=== PATIENT | female | born 1970 | race American Indian/Alaskan Native ===

== ENCOUNTER 2019-01-12 16:50 | Emergency (ER) | payer SELFPAY ==
--- NOTE | 2019-01-12 16:55 | Event Note ---
ED Screening Note ED Screening Note: to er with sob and swelling concerned she is in chf she has been out of her lasix ef .40 in 2013 This initial assessment/diagnostic orders/clinical plan/treatment(s) is/are subject to change based on patients health status, clinical progression and re- assessment by fellow clinical providers in the ED. Further treatment and workup at subsequent clinical providers discretion. Patient/guardian urged not to elope from the ED as their condition may be serious if not clinically assessed and managed. Initial orders include: chf eval
[2019-01-12 16:56] VITALS: BP 142/90
[2019-01-12 17:30] LABS: Basophils # (Auto) 0.1 K/mm3 (0.0-0.1); Basophils % (Auto) 1.1 % (0.0-1.8); Eosinophils # (Auto) 0.2 K/mm3 (0.0-0.4); Eosinophils % (Auto) 3.3 % (0.0-4.3); Hematocrit 43.4 % (30.3-42.9); Hemoglobin 14.5 gm/dl (10.1-14.3); Lymphocytes # (Auto) 2.5 K/mm3 (1.2-5.4); Lymphocytes % (Auto) 37.1 % (13.4-35.0); Mean Corpuscular HGB Conc 33 % (30-34); Mean Corpuscular Volume 94 fl (79-97); Monocytes # (Auto) 0.9 K/mm3 (0.0-0.8); Monocytes % (Auto) 13.8 % (0.0-7.3); Platelet Count 260 K/mm3 (140-440); Red Cell Distribution Width 15.1 % (13.2-15.2)
[2019-01-12 17:50] LABS: Alanine Aminotransferase 15 units/L (7-56); Albumin 4.1 g/dL (3.9-5); BUN/Creatinine Ratio 11; Blood Urea Nitrogen 12 mg/dL (7-17); Calcium 9.8 mg/dL (8.4-10.2); Hemolysis Index 24
[2019-01-12 20:28] LABS: Bilirubin,Urine NEG (Negative); Color,Urine Straw (Yellow)
[2019-01-12 20:29] LABS: Bacteria,Urine 1+ /HPF (Negative); Blood,Urine NEG (Negative); Protein,Urine <15 mg/dL mg/dL (Negative); RBC,Urine < 1.0 /HPF (0.0-6.0); Urobilinogen,Urine < 2.0 mg/dL (<2.0)
[2019-01-12 20:33] LABS: HCG Qualitative,Urine Negative (Negative)
[2019-01-12] MEDS ORDERED: DECADRON IV ONE (20:39)
[2019-01-12] MEDS ORDERED: PROVENTIL IH ONE (20:39)
--- NOTE | 2019-01-12 21:08 | XRay Report ---
CHEST 2 VIEWS INDICATION / CLINICAL INFORMATION: Dyspnea. COMPARISON: 04/27/2016 FINDINGS: SUPPORT DEVICES: None. HEART / MEDIASTINUM: Borderline to mildly enlarged cardiac silhouette and central pulmonary arteries are slightly prominent. No overt interstitial pulmonary edema. LUNGS / PLEURA: No significant pulmonary or pleural abnormality. No pneumothorax. ADDITIONAL FINDINGS: No significant additional findings. IMPRESSION: 1. Borderline cardiomegaly. 2. Slight prominence of pulmonary arteries without overt interstitial pulmonary edema. Signer Name: Carmen Borjas MD Signed: 01/12/2019 9:04 PM Workstation Name: [id number]
--- NOTE | 2019-01-12 21:37 | Emergency Department Report ---
ED Shortness of Breath HPI - General Chief Complaint: Dyspnea/Respdistress Stated Complaint: SOB Time Seen by Provider: 01/12/19 16:52 Source: patient Mode of arrival: Wheelchair Limitations: No Limitations - History of Present Illness Initial Comments: Patient is a 48-year-old female with a history of CHF as well as COPD who presents for shortness of breath and bilateral lower extremity is a chronic problem for this patient states she is out of Lasix for the last 3 weeks there is no chest pain denies vomiting or back pain or diaphoresis tonight intolerance patient ambulatory with steady gait with this MD Complaint: shortness of breath Onset/Timin -: week(s) Severity: moderate Pain Scale: 4 Consistency: intermittent Improves With: rest Worsens With: other (environmental exposure) Known History Of: COPD, asthma, congestive heart failure Context: recent URI Associated Symptoms: cough Treatments Prior to Arrival: none - Related Data Home Oxygen Therapy: No Previous Rx's Medication Instructions Recorded Last Taken Type ALPRAZolam [Xanax] 0.5 mg PO BID PRN #14 tablet 08/30/13 Unknown Rx ALBUTEROL NEB's [Proventil 0.083% 2.5 mg IH Q2HR PRN #30 nebu 04/29/16 Unknown Rx NEBS] HYDROcodone/APAP 7.5-325 [Shannon 1 each PO Q6HR PRN #20 tablet 04/29/16 Unknown Rx 7.5-325 mg TAB] Ipratropium/Albuterol Sulfate 1 ampul IH QIDRT #30 ampul.neb 04/29/16 Unknown Rx [DUONEB *Not for PRN Use*] Nicotine [Habitrol] 14 mg TD QDAY #14 patch 04/29/16 Unknown Rx Pantoprazole [Protonix TAB] 20 mg PO QDAY #30 tablet. 04/29/16 Unknown Rx guaiFENesin ER [Mucinex ER] 600 mg PO BID PRN #30 tablet 04/29/16 Unknown Rx methylPREDNISolone [Medrol Dose 1 dose PO DAILY #1 pack 04/29/16 Unknown Rx Nadira] traZODone [Desyrel] 100 mg PO QHS #30 tablet 04/29/16 Unknown Rx ALBUTEROL Inhaler (OR & NICU) 2 puff IH QID PRN #1 inhalation 01/12/19 Unknown Rx [ProAir HFA Inhaler] Azithromycin [Zithromax Z-NADIRA] 250 mg PO DAILY #6 tab 01/12/19 Unknown Rx Furosemide [Lasix] 20 mg PO QDAY #7 tablet 01/12/19 Unknown Rx Lisinopril [Zestril TAB] 40 mg PO QDAY #30 tablet 01/12/19 Unknown Rx amLODIPine [Norvasc] 10 mg PO QDAY #30 tablet 01/12/19 Unknown Rx dexAMETHasone [Decadron] 4 mg PO BID 2 Days #4 tablet 01/12/19 Unknown Rx Allergies Allergy/AdvReac Type Severity Reaction Status Date / Time No Known Allergies Allergy Verified 07/16/14 09:19 ED Review of Systems ROS: Stated complaint: SOB Other details as noted in HPI Constitutional: denies: chills, fever Eyes: denies: eye pain, eye discharge, vision change ENT: denies: ear pain, throat pain Respiratory: cough, shortness of breath, wheezing Cardiovascular: denies: chest pain, palpitations Endocrine: no symptoms reported Gastrointestinal: denies: abdominal pain, nausea, diarrhea Genitourinary: denies: urgency, dysuria, discharge Musculoskeletal: denies: back pain, joint swelling, arthralgia Skin: denies: rash, lesions Neurological: denies: headache, weakness, paresthesias Psychiatric: denies: anxiety, depression Hematological/Lymphatic: denies: easy bleeding, easy bruising ED Past Medical Hx - Past Medical History Previous Medical History?: Yes Hx Hypertension: Yes Hx Heart Attack/AMI: No Hx Congestive Heart Failure: Yes Hx Diabetes: No Hx Deep Vein Thrombosis: No Hx Pulmonary Embolism: No Hx Asthma: Yes Hx COPD: No Hx Tuberculosis: No - Surgical History Past Surgical History?: No Hx Coronary Stent: No Hx Pacemaker: No Hx Internal Defibrillator: No - Social History Smoking Status: Current Every Day Smoker Substance Use Type: None - Medications Home Medications: Home Medications Medication Instructions Recorded Confirmed Last Taken Type ALPRAZolam [Xanax] 0.5 mg PO BID PRN #14 tablet 08/30/13 04/27/16 Unknown Rx ALBUTEROL NEB's [Proventil 0.083% 2.5 mg IH Q2HR PRN #30 nebu 04/29/16 Unknown Rx NEBS] HYDROcodone/APAP 7.5-325 [Shannon 1 each PO Q6HR PRN #20 tablet 04/29/16 Unknown Rx 7.5-325 mg TAB] Ipratropium/Albuterol Sulfate 1 ampul IH QIDRT #30 ampul.neb 04/29/16 Unknown Rx [DUONEB *Not for PRN Use*] Nicotine [Habitrol] 14 mg TD QDAY #14 patch 04/29/16 Unknown Rx Pantoprazole [Protonix TAB] 20 mg PO QDAY #30 tablet.dr 04/29/16 Unknown Rx guaiFENesin ER [Mucinex ER] 600 mg PO BID PRN #30 tablet 04/29/16 Unknown Rx methylPREDNISolone [Medrol Dose 1 dose PO DAILY #1 pack 04/29/16 Unknown Rx Nadira] traZODone [Desyrel] 100 mg PO QHS #30 tablet 04/29/16 Unknown Rx ALBUTEROL Inhaler (OR & NICU) 2 puff IH QID PRN #1 inhalation 01/12/19 Unknown Rx [ProAir HFA Inhaler] Azithromycin [Zithromax Z-NADIRA] 250 mg PO DAILY #6 tab 01/12/19 Unknown Rx Furosemide [Lasix] 20 mg PO QDAY #7 tablet 01/12/19 Unknown Rx Lisinopril [Zestril TAB] 40 mg PO QDAY #30 tablet 01/12/19 Unknown Rx amLODIPine [Norvasc] 10 mg PO QDAY #30 tablet 01/12/19 Unknown Rx dexAMETHasone [Decadron] 4 mg PO BID 2 Days #4 tablet 01/12/19 Unknown Rx ED Physical Exam - General Limitations: No Limitations General appearance: alert, in no apparent distress - Head Head exam: Present: atraumatic, normocephalic - Eye Eye exam: Present: normal appearance, PERRL, EOMI Pupils: Present: normal accommodation - ENT ENT exam: Present: normal orophraynx, mucous membranes moist, TM's normal bilaterally, normal external ear exam - Neck Neck exam: Present: normal inspection, full ROM. Absent: tenderness, meningismus, lymphadenopathy, thyromegaly - Respiratory Respiratory exam: Present: normal lung sounds bilaterally, chest wall tenderness (right lateral chest wall pain ). Absent: respiratory distress, wheezes, rales, rhonchi, stridor - Cardiovascular Cardiovascular Exam: Present: regular rate, normal rhythm, normal heart sounds. Absent: systolic murmur, diastolic murmur, rubs, gallop - GI/Abdominal GI/Abdominal exam: Present: soft, normal bowel sounds. Absent: distended, tenderness, guarding, rebound, rigid, bruit, hernia - Rectal Rectal exam: Present: deferred - Extremities Exam Extremities exam: Present: normal inspection, full ROM, normal capillary refill. Absent: tenderness - Back Exam Back exam: Present: normal inspection, full ROM. Absent: tenderness, CVA tenderness (R), CVA tenderness (L), rash noted - Neurological Exam Neurological exam: Present: alert, oriented X3, CN II-XII intact, normal gait - Psychiatric Psychiatric exam: Present: normal affect, normal mood - Skin Skin exam: Present: warm, dry, intact, normal color. Absent: rash ED Course Vital Signs 01/12/19 16:54 Temperature 98.5 F Pulse Rate 99 H Respiratory 22 Rate Blood Pressure 142/90 O2 Sat by Pulse 95 Oximetry ED Medical Decision Making - Lab Data Result diagrams: 01/12/19 17:08 01/12/19 17:08 Lab Results 01/12/19 01/12/19 01/12/19 Range/Units 17:08 17:08 17:08 WBC 6.7 (4.5-11.0) K/mm3 RBC 4.60 (3.65-5.03) M/mm3 Hgb 14.5 H (10.1-14.3) gm/dl Hct 43.4 H (30.3-42.9) % MCV 94 (79-97) fl MCH 32 (28-32) pg MCHC 33 (30-34) % RDW 15.1 (13.2-15.2) % Plt Count 260 (140-440) K/mm3 Lymph % (Auto) 37.1 H (13.4-35.0) % [place] % (Auto) 13.8 H (0.0-7.3) % Eos % (Auto) 3.3 (0.0-4.3) % Baso % (Auto) 1.1 (0.0-1.8) % Lymph # 2.5 (1.2-5.4) K/mm3 [place] # 0.9 H (0.0-0.8) K/mm3 Eos # 0.2 (0.0-0.4) K/mm3 Baso # 0.1 (0.0-0.1) K/mm3 Seg Neutrophils % 44.7 (40.0-70.0) % Seg Neutrophils # 3.0 (1.8-7.7) K/mm3 Sodium 136 L (137-145) mmol/L Potassium 4.3 (3.6-5.0) mmol/L Chloride 90.6 L (98-107) mmol/L Carbon Dioxide 36 H (22-30) mmol/L Anion Gap 14 mmol/L BUN 12 (7-17) mg/dL Creatinine 1.1 (0.7-1.2) mg/dL Estimated GFR > 60 ml/min BUN/Creatinine Ratio 11 % Glucose 145 H (65-100) mg/dL Calcium 9.8 (8.4-10.2) mg/dL Total Bilirubin < 0.20 (0.1-1.2) mg/dL AST 14 (5-40) units/L ALT 15 (7-56) units/L Alkaline Phosphatase 84 (35-129) units/L Troponin T < 0.010 (0.00-0.029) ng/mL NT-Pro-B Natriuret Pep 51.55 (0-900) pg/mL Total Protein 7.7 (6.3-8.2) g/dL Albumin 4.1 (3.9-5) g/dL Albumin/Globulin Ratio 1.1 % Urine Color (Yellow) Urine Turbidity (Clear) Urine pH (5.0-7.0) Ur Specific [place] (1.003-1.030) Urine Protein (Negative) mg/dL Urine Glucose (UA) (Negative) mg/dL Urine Ketones (Negative) mg/dL Urine Blood (Negative) Urine Nitrite (Negative) Urine Bilirubin (Negative) Urine Urobilinogen (<2.0) mg/dL Ur Leukocyte Esterase (Negative) Urine WBC (Auto) (0.0-6.0) /HPF Urine RBC (Auto) (0.0-6.0) /HPF U Epithel Cells (Auto) (0-13.0) /HPF Urine Bacteria (Auto) (Negative) /HPF Urine HCG, Qual (Negative) 01/12/19 Range/Units 19:46 WBC (4.5-11.0) K/mm3 RBC (3.65-5.03) M/mm3 Hgb (10.1-14.3) gm/dl Hct (30.3-42.9) % MCV (79-97) fl MCH (28-32) pg MCHC (30-34) % RDW (13.2-15.2) % Plt Count (140-440) K/mm3 Lymph % (Auto) (13.4-35.0) % [place] % (Auto) (0.0-7.3) % Eos % (Auto) (0.0-4.3) % Baso % (Auto) (0.0-1.8) % Lymph # (1.2-5.4) K/mm3 [place] # (0.0-0.8) K/mm3 Eos # (0.0-0.4) K/mm3 Baso # (0.0-0.1) K/mm3 Seg Neutrophils % (40.0-70.0) % Seg Neutrophils # (1.8-7.7) K/mm3 Sodium (137-145) mmol/L Potassium (3.6-5.0) mmol/L Chloride (98-107) mmol/L Carbon Dioxide (22-30) mmol/L Anion Gap mmol/L BUN (7-17) mg/dL Creatinine (0.7-1.2) mg/dL Estimated GFR ml/min BUN/Creatinine Ratio % Glucose (65-100) mg/dL Calcium (8.4-10.2) mg/dL Total Bilirubin (0.1-1.2) mg/dL AST (5-40) units/L ALT (7-56) units/L Alkaline Phosphatase (35-129) units/L Troponin T (0.00-0.029) ng/mL NT-Pro-B Natriuret Pep (0-900) pg/mL Total Protein (6.3-8.2) g/dL Albumin (3.9-5) g/dL Albumin/Globulin Ratio % Urine Color Straw (Yellow) Urine Turbidity Clear (Clear) Urine pH 7.0 (5.0-7.0) Ur Specific [place] 1.005 (1.003-1.030) Urine Protein <15 mg/dl (Negative) mg/dL Urine Glucose (UA) Neg (Negative) mg/dL Urine Ketones Neg (Negative) mg/dL Urine Blood Neg (Negative) Urine Nitrite Neg (Negative) Urine Bilirubin Neg (Negative) Urine Urobilinogen < 2.0 (<2.0) mg/dL Ur Leukocyte Esterase Neg (Negative) Urine WBC (Auto) 2.0 (0.0-6.0) /HPF Urine RBC (Auto) < 1.0 (0.0-6.0) /HPF U Epithel Cells (Auto) 3.0 (0-13.0) /HPF Urine Bacteria (Auto) 1+ (Negative) /HPF Urine HCG, Qual Negative (Negative) - EKG Data EKG shows normal: sinus rhythm, axis, intervals, QRS complexes, ST-T waves Rate: normal - EKG Data When compared to previous EKG there are: no significant change Interpretation: normal EKG (ekg interp by ed attending NSR no ST Elevated [place] ) - Radiology Data Radiology results: report reviewed, image reviewed no opacities no pulmonary edema slight cardiomegally, - Medical Decision Making Chest x-ray no Pulmonary edema no opacities no infiltrates symptoms are resolved after neb treatment given in ED patient has ambulation to find to return with increasing shortness of breath there is no wheezing at this time plan DC home with albuterol inhaler refill blood pressure medications patient will follow with PCP in 2-3 days patient verbalizes understanding discharge plan discharged home in stable condition at this time Critical care attestation.: If time is entered above; I have spent that time in minutes in the direct care of this critically ill patient, excluding procedure time. ED Disposition Clinical Impression: Bronchitis Asthma Qualifiers: Asthma severity: moderate Asthma persistence: unspecified Asthma complication type: unspecified Qualified Code(s): J45.909 - Unspecified asthma, uncomplicated Disposition: DC-01 TO HOME OR SELFCARE Is pt being admited?: No Does the pt Need Aspirin: No Condition: Stable Instructions: Chronic Bronchitis (ED), Asthma (ED) Prescriptions: dexAMETHasone [Decadron] 4 mg PO BID 2 Days #4 tablet Furosemide [Lasix] 20 mg PO QDAY #7 tablet amLODIPine [Norvasc] 10 mg PO QDAY #30 tablet ALBUTEROL Inhaler (OR & NICU) [ProAir HFA Inhaler] 2 puff IH QID PRN #1 inhalation PRN Reason: Shortness Of Breath Lisinopril [Zestril TAB] 40 mg PO QDAY #30 tablet Azithromycin [Zithromax Z-NADIRA] 250 mg PO DAILY #6 tab Referrals: HENNA STARKS MD [Staff Physician] - 3-5 Days [facility] [Outside] - 3-5 Days Forms: Work/School Release Form(ED) Time of Disposition: 21:49
== END 2019-01-12 22:08 | disposition home or self-care (01) ==
LOC: ED 16:50
DX: J45.909 Unspecified asthma, uncomplicated (principal); I11.0 Hypertensive heart disease with heart failure; I50.9 Heart failure, unspecified; F17.200 Nicotine dependence, unspecified, uncomplicated
CPT/HCPCS: 36415; 71046; 80053; 81001; 81025; 83880; 84484; 85025; 96374; 99284; J1100